=== PATIENT | male | born 1985 | race African-American/Black ===

== ENCOUNTER 2017-12-12 10:14 | Emergency (ER) | payer OTHER ==
[2017-12-12 10:26] VITALS: BP 120/72; PULSE 77; TEMP 98.6; BMI 23.6
[2017-12-12] MEDS ORDERED: KETOROLAC TROMETHAMINE 60 MG/2 ML VIAL IM ONE (10:54)
[2017-12-12] MEDS ORDERED: KETOROLAC TROMETHAMINE 60 MG/2 ML VIAL ONE (10:57)
--- NOTE | 2017-12-12 11:06 | PDOC ---
History of Present Illness - General Chief Complaint: Back Pain Stated Complaint: INJURY Time Seen by Provider: 12/12/17 10:49 History Source: Patient Exam Limitations: No Limitations - History of Present Illness Initial Comments: 12/12/17 10:56 32 yr male with c/o low back pain radiating to right buttock and leg for 2 weeks after he pulled his lower back at work. 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 PT has not taken any pain meds. NO abd pain , neg urine or bowel dysfunction. no medical history. 12/12/17 11:22 Past History - Past Medical History Allergies/Adverse Reactions: Allergies Allergy/AdvReac Type Severity Reaction Status Date / Time No Known Allergies Allergy Verified 12/12/17 10:20 Home Medications: Ambulatory Orders Cyclobenzaprine HCl [Flexeril -] 10 mg PO TID PRN #21 tablet 12/12/17 Naproxen [Naprosyn -] 500 mg PO BID PRN #14 tablet 12/12/17 COPD: No - Immunization History Immunization Up to Date: Yes - Suicide/Smoking/Psychosocial Hx Smoking History: Never smoked Hx Alcohol Use: No Drug/Substance Use Hx: No *Physical Exam - Vital Signs Last Vital Signs Temp Pulse Resp BP Pulse Ox 98.6 F 77 18 120/72 98 12/12/17 10:20 12/12/17 10:20 12/12/17 10:20 12/12/17 10:20 12/12/17 10:20 - Physical Exam General Appearance: Yes: Nourished, Appropriately Dressed HEENT: positive: EOMI, REGINE Neck: positive: Supple. negative: Tender Respiratory/Chest: positive: Lungs Clear, Normal Breath Sounds. negative: Chest Tender Cardiovascular: positive: Regular Rhythm, Regular Rate Musculoskeletal: positive: Normal Inspection, Other (ttp soft tissue parapsinal lumbar spine , neg vetebral tenderness, left leg raise pain at 45 degrees ). negative: Vertebral Tenderness Extremity: positive: Normal Capillary Refill, Normal Inspection, Normal Range of Motion. negative: Tender Integumentary: positive: Normal Color, Dry, Warm Neurologic: positive: Fully Oriented, Alert, Normal Mood/Affect, Normal Response , Motor Strength 5/5 Medical Decision Making - Medical Decision Making 12/12/17 11:21 cc: low back pain to left leg most likely lumbar strain with sciatica neg direct trauma no saddle anesthesia neg urine or bowel dysfunction abd soft nt no constipation will give toradol now dc home with naprosyn, flexeril strict follow up with ortho no work until cleared pt ambulating no distress 12/12/17 11:22 *DC/Admit/Observation/Transfer Diagnosis at time of Disposition: Low back pain radiating down leg - Discharge Dispostion Disposition: HOME Condition at time of disposition: Fair - Prescriptions Prescriptions: Cyclobenzaprine HCl [Flexeril -] 10 mg PO TID PRN #21 tablet PRN Reason: Muscle Spasms Naproxen [Naprosyn -] 500 mg PO BID PRN #14 tablet PRN Reason: Back Pain - Referrals Referrals: Alfonso De Leon MD [Staff Physician] - - Patient Instructions Additional Instructions: follow with the orthopedist in 3-4 days take the meds as directed apply a topical rubbing cream such as Icy Hot or Lidocaine, to the lower back ( sold over the counter) no heavy lifting or bending see your doctor or the orthopedist to be cleared to return to work - Post Discharge Activity Forms/Work/School Notes: Back to Work
== END 2017-12-12 11:18 | disposition home or self-care (01) ==
LOC: JERFT 10:14
PROC: 3E0233Z Introduction of Anti-inflammatory into Muscle, Percutaneous Approach (ICD-10-PCS; principal; 2017-12-12)
DX: S39.012A Strain of muscle, fascia and tendon of lower back, initial encounter (principal); M54.42 Lumbago with sciatica, left side; X50.9XXA Other and unspecified overexertion or strenuous movements or postures, initial encounter; Y93.H3 Activity, building and construction; Y92.69 Other specified industrial and construction area as the place of occurrence of the external cause; Y99.0 Civilian activity done for income or pay
CPT/HCPCS: 99281-25